=== PATIENT | male | born 2000 | race Caucasian/White ===

== ENCOUNTER 2023-12-10 21:35 | Emergency (ER) | payer BC, SELFPAY ==
[2023-12-10 21:52] VITALS: BP 146/84; PULSE 73; TEMP 36.8; O2SAT 98; BMI 42.3
--- NOTE | 2023-12-10 22:27 | ED.GENADUL1 ---
HPI HPI - General Adult General Chief complaint: Urogenital-Male Stated complaint: URINATION FREQ AND EXCESSIVE DRINKING WATER Time Seen by Provider: 12/10/23 22:25 Source: patient Mode of arrival: walk-in History of Present Illness HPI narrative: presents complaining of polydypsia and urinary frequency over past 3 weeks. Does not feel ill. No nausea. Some weight loss. no abdominal pain. Related Data Allergies Allergy/AdvReac Type Severity Reaction Status Date / Time No Known Drug Allergies Allergy Verified 12/10/23 21:52 Opioid HPI Opioid Management Most Recent Opioid Data: No Data to Display Review of Systems ROS Status of ROS 10 or more systems reviewed and unremarkable except as noted in history and below Exam Constitutional Vital Signs, click to edit/add: Last Vital Signs Temp 98.2 F 12/10/23 21:52 Pulse 75 12/11/23 00:02 Resp 16 12/11/23 00:02 BP 154/94 H 12/11/23 00:02 Pulse Ox 98 12/11/23 00:02 O2 Del Method Room Air 12/11/23 00:02 Common normals: no apparent distress, average body habitus, oriented x3, no limitations, healthy appearing, alert and well nourished [facility] Common normals: normocephalic and head/scalp atraumatic Eye Common normals: EOMs intact bilaterally and conjunctivae normal Respiratory Common normals: normal respiratory effort, no retractions, no use of accessory muscles and clear to auscultation bilaterally Cardio Common normals: regular rate, regular rhythm, S1 normal heart sound and S2 normal heart sound GI Common normals: Normal to inspection, nondistended, normoactive bowel sounds present, soft to palpation and non-tender Extremity Common normals: normal to inspection and full ROM Neuro Common normals: oriented x3, CN's II-XII intact bilaterally and moves all extremities Psych Appearance: grossly normal Course Vital Signs Vital signs: Vital Signs Temperature 98.2 F 12/10/23 21:52 Pulse Rate 73 12/10/23 21:52 Respiratory Rate 16 12/10/23 21:52 Blood Pressure 146/84 H 12/10/23 21:52 Pulse Oximetry 98 12/10/23 21:52 Oxygen Delivery Method Room Air 12/10/23 21:52 Temperature 98.2 F 06/21/24 21:52 Pulse Rate 75 12/11/23 00:02 Respiratory Rate 16 12/11/23 00:02 Blood Pressure 154/94 H 12/11/23 00:02 Pulse Oximetry 98 12/11/23 00:02 Oxygen Delivery Method Room Air 12/11/23 00:02 Medical Decision Making MDM Narrative Medical decision making narrative: patient presents with new onset diabetes. labs demonstrate hyperglycemia. no acidosis. given dose of glucotrol and then discharged home with a prescription for glucotrol and advised to follow up with his doctor Lab Data Labs: Lab Results 12/10/23 12/10/23 12/10/23 Range/Units 22:00 22:28 22:35 WBC 8.9 (4.0-11.0) 10^3/uL RBC 4.98 (4.70-6.10) 10^6/uL Hgb 14.1 (14.0-18.0) g/dL Hct 42.5 (42.0-54.0) % MCV 85.3 (80.0-94.0) fL MCH 28.3 (25.9-34.0) pg MCHC 33.2 (29.9-35.2) g/dL RDW 12.1 (11.0-15.0) % Plt Count 227 (150-450) 10^3/uL MPV 11.8 (9.5-13.5) fL Neut % (Auto) 40.5 L (43.0-75.0) % Lymph % (Auto) 51.0 (20.5-60.0) % Nye % (Auto) 6.6 (1.7-12.0) % Eos % (Auto) 1.1 (0.9-7.0) % Baso % (Auto) 0.6 (0.2-2.0) % Neut # (Auto) 3.6 (1.4-6.5) 10^3/uL Lymph # (Auto) 4.6 H (1.2-3.8) 10^3/uL Nye # (Auto) 0.6 (0.3-0.8) 10^3/uL Eos # (Auto) 0.1 (0.0-0.7) 10^3/uL Baso # (Auto) 0.1 (0.0-0.1) 10^3/uL Abs Immat Gran (auto) 0.02 (0.00-0.03) 10^3/uL Imm/Tot Granulo (auto) 0.2 (0.0-0.5) % Sodium 135 L (136-145) mmol/L Potassium 3.9 (3.5-5.1) mmol/L Chloride 99 (98-107) mmol/L Carbon Dioxide 26.8 (21.0-32.0) mmol/L Anion Gap 13.1 BUN 12.0 (7.0-18.0) mg/dL Creatinine 0.95 (0.70-1.30) mg/dL Est GFR ( Amer) >60 (>=60) Est GFR (Non-Af Amer) >60 (>=60) BUN/Creatinine Ratio 12.6 Glucose 479 H (74-106) mg/dL Calcium 9.3 (8.5-10.1) mg/dL Total Bilirubin 0.6 (0.2-1.0) mg/dL AST 49 H (15-37) U/L ALT 119 H (16-63) U/L Alkaline Phosphatase 94 (46-116) U/L Total Protein 7.8 (6.4-8.2) g/dL Albumin 3.7 (3.4-5.0) g/dL Globulin 4.1 g/dL Albumin/Globulin Ratio 0.9 Urine Color Lt. yellow (YELLOW) Urine Clarity Clear (CLEAR) Urine pH 6.0 (5.0-9.0) Ur Specific [place] 1.010 (1.005-1.025) Urine Protein Negative (NEG/TRACE) mg/dL Urine Glucose (UA) >=1000 A (NEGATIVE) mg/dL Urine Ketones Negative (NEGATIVE) mg/dL Urine Occult Blood Negative (NEGATIVE) Urine Nitrite Negative (NEGATIVE) Urine Bilirubin Negative (NEGATIVE) Urine Urobilinogen 1.0 (0.2-1.0) EU/dL Ur Leukocyte Esterase Negative (NEGATIVE) POC Glucose 427 H (74-106) mg/dL Discharge Plan Discharge Stand Alone Forms: Portal Instructions Chief Complaint: Urogenital-Male Clinical Impression: New onset type 2 diabetes mellitus Patient Disposition: Home, Self-Care Print Language: Lao Instructions: Type 2 Diabetes in Adults: New Diagnosis (DC) Additional Instructions: follow up with your doctor next week Referrals: Physician,Non-Staff, [Primary Care Provider] - 1 week Discharge Date/Time: 12/11/23 00:04
[2023-12-10 22:31] LABS: Glucometer 427 mg/dL (74-106)
[2023-12-10 22:33] LABS: Bilirubin Urine NEGATIVE (NEGATIVE); Blood Urine NEGATIVE (NEGATIVE); Clarity Urine CLEAR (CLEAR); Color Urine LT. YELLOW (YELLOW); Glucose Urine UA >=1000 mg/dL (NEGATIVE); Ketones Urine NEGATIVE (NEGATIVE); Leukocyte Esterase Urine NEGATIVE (NEGATIVE); Nitrite Urine NEGATIVE (NEGATIVE); Protein Urine NEGATIVE (NEG/TRACE); Urine Microscopic Indicated NO
[2023-12-10 22:42] LABS: Basophils Absolute Auto 0.1 10^3/uL (0.0-0.1); Basophils Percent Auto 0.6 % (0.2-2.0); Eosinophils Absolute Auto 0.1 10^3/uL (0.0-0.7); Eosinophils Percent Auto 1.1 % (0.9-7.0); Hematocrit 42.5 % (42.0-54.0); Hemoglobin 14.1 g/dL (14.0-18.0); Immature Granulocytes Abs Auto 0.02 10^3/uL (0.00-0.03); Immature Granulocytes Pct Auto 0.2 % (0.0-0.5); Lymphocytes Absolute Auto 4.6 10^3/uL (1.2-3.8); Mean Corpuscular HGB Conc 33.2 g/dL (29.9-35.2); Mean Corpuscular Hemoglobin 28.3 pg (25.9-34.0); Mean Corpuscular Volume 85.3 fL (80.0-94.0); Mean Platelet Volume 11.8 fL (9.5-13.5); Monocytes Absolute Auto 0.6 10^3/uL (0.3-0.8); Monocytes Percent Auto 6.6 % (1.7-12.0); Neutrophils Absolute Auto 3.6 10^3/uL (1.4-6.5); Neutrophils Percent Auto 40.5 % (43.0-75.0); Platelet Count 227 10^3/uL (150-450); Red Blood Count 4.98 10^6/uL (4.70-6.10); Red Cell Distribution Width 12.1 % (11.0-15.0); White Blood Count 8.9 10^3/uL (4.0-11.0)
[2023-12-10 22:56] LABS: Alanine Aminotransferase 119 U/L (16-63); Albumin Globulin Ratio 0.9; Albumin Level 3.7 g/dL (3.4-5.0); Alkaline Phosphatase 94 U/L (46-116); Anion Gap 13.1; Aspartate Amino Transferase 49 U/L (15-37); BUN Creatinine Ratio 12.6; Bilirubin Total 0.6 mg/dL (0.2-1.0); Calcium 9.3 mg/dL (8.5-10.1); Carbon Dioxide 26.8 mmol/L (21.0-32.0); Chloride 99 mmol/L (98-107); Estimated GFR (African America >60 (>=60); Estimated GFR (Non-African Ame >60 (>=60); Globulin 4.1 g/dL; Glucose 479 mg/dL (74-106); Potassium 3.9 mmol/L (3.5-5.1); Sodium 135 mmol/L (136-145); Total Protein 7.8 g/dL (6.4-8.2)
[2023-12-10] MEDS: GLIPIZIDE 5 MG TAB.ER.24 PO (22:57)
[2023-12-11 00:02] VITALS: BP 154/94; PULSE 75; O2SAT 98
== END 2023-12-11 00:04 | disposition home or self-care (01) ==
PROVIDERS: Emergency Provider Internal Medicine; Family Provider Family Medicine
DX: E11.9 Type 2 diabetes mellitus without complications (principal)
CPT/HCPCS: 36415; 80053; 81003; 85025; 99283

== ENCOUNTER 2024-01-06 08:09 | Outpatient (OUT) | payer BC, SELFPAY | END 2024-01-06 08:10 | disposition home or self-care (01) | PROVIDERS: Family Provider Family Medicine; Visit Provider Nurse Practitioner | DX: E11.9 Type 2 diabetes mellitus without complications (principal) | CPT/HCPCS: G0108 ==

== ENCOUNTER 2024-01-06 08:13 | Outpatient (OUT) | payer BC, SELFPAY ==
[2024-01-06 08:36] LABS: Hematocrit 43.8 % (42.0-54.0); Hemoglobin 13.9 g/dL (14.0-18.0); Mean Corpuscular HGB Conc 31.7 g/dL (29.9-35.2); Mean Corpuscular Hemoglobin 28.4 pg (25.9-34.0); Mean Corpuscular Volume 89.4 fL (80.0-94.0); Mean Platelet Volume 10.8 fL (9.5-13.5); Platelet Count 250 10^3/uL (150-450); Red Cell Distribution Width 12.2 % (11.0-15.0); White Blood Count 12.1 10^3/uL (4.0-11.0)
[2024-01-06 08:37] LABS: Bilirubin Urine NEGATIVE (NEGATIVE); Blood Urine NEGATIVE (NEGATIVE); Clarity Urine CLEAR (CLEAR); Color Urine YELLOW (YELLOW); Glucose Urine UA NEGATIVE (NEGATIVE); Ketones Urine NEGATIVE (NEGATIVE); Leukocyte Esterase Urine NEGATIVE (NEGATIVE); Nitrite Urine NEGATIVE (NEGATIVE); Protein Urine 30 mg/dL (NEG/TRACE); Specific Gravity Urine >=1.030 (1.005-1.025); pH Urine 5.5 (5.0-9.0)
[2024-01-06 08:42] LABS: Urine Microscopic Indicated YES
[2024-01-06 09:13] LABS: Bacteria Urine MODERATE #/HPF (NONE SEEN); Cast Seen? NONE SEEN #/LPF (NONE SEEN); Crystals Seen? None Seen #/HPF (None Seen); Mucus Urine LARGE (NONE SEEN); RBC Urine 0-2 #/HPF (0-2); Squamous Epithelial Cell Urine MODERATE #/LPF (NONE/RARE); WBC Urine 0-2 #/HPF (NONE SEEN)
[2024-01-06 09:14] LABS: Urine Culture Indicated NO
[2024-01-06 09:21] LABS: Lymphocytes Absolute Manual 6.29 10^3/uL (1.20-3.80); Monocytes Absolute Manual 0.72 10^3/uL (0.30-0.80); Segmented Neut Absolute Manual 4.84 10^3/uL (1.4-6.5)
[2024-01-06 09:22] LABS: Eosinophils Absolute Manual 0.24 10^3/uL (0.00-0.70)
[2024-01-06 09:26] LABS: Creatinine Urine Random 395.17 mg/dL (20.00-300.00); Microalbum Creatinine Ratio Ur 32.6 mg/g (0.0-29.9); Microalbumin Urine Random 12.9 mg/dL (<=30.0)
[2024-01-06 09:28] LABS: Estimated Average Glucose 289 mg/dL; Glycohemoglobin A1C 11.7 % (4.5-6.2)
[2024-01-06 09:32] LABS: Alanine Aminotransferase 91 U/L (16-63); Albumin Globulin Ratio 0.9; Albumin Level 3.6 g/dL (3.4-5.0); Alkaline Phosphatase 68 U/L (46-116); Aspartate Amino Transferase 32 U/L (15-37); BUN Creatinine Ratio 18.2; Bilirubin Total 0.7 mg/dL (0.2-1.0); Carbon Dioxide 31.6 mmol/L (21.0-32.0); Chloride 102 mmol/L (98-107); Chol HDL Ratio 5.1; Cholesterol 199 mg/dL (<=200); Estimated GFR (African America >60 (>=60); Estimated GFR (Non-African Ame >60 (>=60); Globulin 4.1 g/dL; Glucose 159 mg/dL (74-106); HDL Cholesterol 39 mg/dL (40-60); Potassium 3.6 mmol/L (3.5-5.1); Sodium 139 mmol/L (136-145); Total Protein 7.7 g/dL (6.4-8.2); Triglycerides 99 mg/dL (<=150); VLDL CHOLESTEROL 19.8 mg/dL
== END 2024-01-06 08:14 | disposition home or self-care (01) ==
LOC: LAB 08:14
PROVIDERS: Family Provider Family Medicine; Visit Provider Nurse Practitioner
DX: E11.9 Type 2 diabetes mellitus without complications (principal)
CPT/HCPCS: 36415; 80053; 80061; 81001; 82043; 82570; 83036; 85007; 85027; G0108

== ENCOUNTER 2024-05-01 12:47 | Outpatient (OUT) | payer BC, SELFPAY ==
--- OUTSIDE RECORDS SUMMARY | 2024-05-01 13:04 | XMS_ITS | CCD ---
Author Organization [facility] Inform ion [facility] Care Team Providers Care Home Stereo Equipment Installer Name Role Phone GLORY ACUÑA Attending Unavailable AICHHOLZ, GLORY Attending Unavailable AICHHOLZ, GLORY Attending Unavailable Encounters Encounter Date Encounter Type Care Provider Facility Start: 03-08-2024 End: 03-08-2024 ambulatory GLORY AICHHOLZ Not Available Start: 01-20-2024 End: 01-20-2024 ambulatory GLORY AICHHOLZ Not Available Start: 12-20-2023 End: 12-20-2023 ambulatory GLORY AICHHOLZ Not Available Payers Date Payer Category Payer Unknown [id number] 1998 Unknown [id number] 1998 Unknown [id number] 1998 Unknown [id number] Summary Purpose Family History No Family History Records Found Advance Directives No Advanced Directives Records Found Additional Source Comments (unrecognized sect ion and content) No Status Records Found INFORMATION SOURCE (unrecogn ized section and content) DATE CREATED AUTHOR 03/10/2024 [facility] EPIC FOR RECORDS PERTAINING TO PATIENTS WHO ARE OR HAVE BEEN ENROLLED IN A CHEMICAL DEPENDENCY/SUBSTANCEABUSE PROGRAM, SOME INFORMATION MAY BE OMITTED. This clinical summary was aggregated from multiple sources. Caution should be exercised in using it in the provision of clinical care. This summary normalizes information from multiple sources, and as a consequence, information in this document may materially change the coding, format and clinical context of patient data. In addition, data may be omitted in some cases. CLINICAL DECISIONS SHOULD BE BASED ON THE PRIMARY CLINICAL RECORDS. [facility] provides no warranty or guarantee of the accuracy or completeness of information in this document.
[2024-05-01 13:38] LABS: Estimated Average Glucose 154 mg/dL
[2024-05-01 14:28] LABS: Alanine Aminotransferase 45 U/L (16-63); Albumin Globulin Ratio 0.9; Albumin Level 3.5 g/dL (3.4-5.0); Alkaline Phosphatase 63 U/L (46-116); Anion Gap 13.1; Aspartate Amino Transferase 22 U/L (15-37); Bilirubin Total 0.7 mg/dL (0.2-1.0); Chloride 107 mmol/L (98-107); Chol HDL Ratio 3.4; Cholesterol 141 mg/dL (<=200); Estimated GFR (African America >60 (>=60 mL/min/1.73m^2); Estimated GFR (Non-African Ame >60 (>=60 mL/min/1.73m^2); Globulin 3.8 g/dL; Glucose 112 mg/dL (74-106); HDL Cholesterol 42 mg/dL (40-60); LDL Cholesterol Calculated 91.2 mg/dL; Potassium 4.1 mmol/L (3.5-5.1); Sodium 143 mmol/L (136-145); Total Protein 7.3 g/dL (6.4-8.2); Triglycerides 39 mg/dL (<=150); VLDL CHOLESTEROL 7.8 mg/dL
== END 2024-05-01 12:48 | disposition home or self-care (01) ==
LOC: LAB 12:47
PROVIDERS: Family Provider Family Medicine; PCP Nurse Practitioner; Visit Provider Nurse Practitioner
DX: E11.65 Type 2 diabetes mellitus with hyperglycemia (principal)
CPT/HCPCS: 36415; 80053; 80061; 83036